=== PATIENT | female | born 1945 ===

== ENCOUNTER → 2018-10-06 | Outpatient (CLI) | payer OTHER | END | disposition home or self-care (01) | LOC: TOM 10:00 | DX: R91.8 Other nonspecific abnormal finding of lung field (principal) ==

== ENCOUNTER 2021-11-11 08:26 | Emergency (ER) | payer OTHER ==
[~2021-11-11] VITALS: Ht 157.5 cm; Wt 59.9 kg
[2021-11-11] MEDS ORDERED: CHILDREN'S ASPI81 MG (08:35)
[2021-11-11] MEDS ORDERED: HUMULIN 70100 UNIT/1 (08:35)
[2021-11-11] MEDS ORDERED: PANTOPRAZOLE SO40 M2 (08:35)
[2021-11-11] MEDS ORDERED: LATANOPROST 0.7.5 ML (08:36)
[2021-11-11] MEDS ORDERED: HORIZANT300 MG (08:36)
[2021-11-11] MEDS ORDERED: CANDESARTAN CILE8 M1 (08:36)
[2021-11-11] MEDS ORDERED: CRESTOR5 MG (08:36)
== END 2021-11-11 09:14 | disposition home or self-care (01) ==
LOC: ER 08:26
DX: M77.8 Other enthesopathies, not elsewhere classified (principal); L03.114 Cellulitis of left upper limb